=== PATIENT | female | born 1990 | race Hispanic/Latino ===

== ENCOUNTER 2017-04-23 19:11 | Emergency (ER) | payer BC ==
[2017-04-23 19:55] VITALS: BP 136/80; PULSE 78; RESP 16; TEMP 98.2; O2SAT 100
[2017-04-23] MEDS ORDERED: TDAP Vaccine 0.5 mL Syr IM ONE (20:30)
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
--- NOTE | 2017-04-24 15:17 | RAD ---
PROCEDURE: Right Foot Radiographs. HISTORY: trauma COMPARISON: None. FINDINGS: BONES: Normal. No fracture. JOINTS: Normal. SOFT TISSUES: Normal. OTHER FINDINGS: None. IMPRESSION: Normal right foot radiographs.
== END 2017-04-23 22:16 | disposition home or self-care (01) ==
LOC: MERGE 19:11 → H.ER 19:11
DX: L03.115 Cellulitis of right lower limb (principal); Z23 Encounter for immunization